=== PATIENT | female | born 1995 | race American Indian/Alaskan Native ===

== ENCOUNTER 2017-01-11 10:20 | Emergency (ER) | payer OTHER ==
[2017-01-11 11:38] LABS: Bacteria,Urine 1+ /HPF (Negative); Bilirubin,Urine NEG (Negative); Blood,Urine NEG (Negative); Ketones,Urine NEG (Negative); Leukocyte Esterase,Urine LG (Negative); Mucus,Urine FEW /HPF; Nitrite,Urine NEG (Negative); Protein,Urine <15 mg/dL mg/dL (Negative)
--- NOTE | 2017-01-11 12:06 | Emergency Department Report ---
ED Female HPI - General Chief complaint: Urogenital-Female Stated complaint: ABD PAIN AND D/C Time Seen by Provider: 01/11/17 12:04 Source: patient, family Mode of arrival: Ambulatory Limitations: No Limitations - History of Present Illness Initial comments: Patient here reports that she has recurrent episode of bacterial vaginosis and she has a fishy odor from her vaginal area from vaginal discharge. Triage note referred to patient stating that she has possible STD exposure but patient denies this. She says she has vaginal discharge that brownish in color. She states she is having pelvic pain at 4 out of 10 that is cramping. Last menstrual period was 01/02/2017. She denies any vaginal bleeding. Denies any back pain. Denies any urinary burning frequency or urgency. She denies any fever or chills. She and had unprotected sex. MD Complaint: vaginal discharge, pelvic pain, possible STD Onset/Timin -: days(s) Location: other (pelvic pain) Radiation: non-radiating Severity scale (0 -10): 4 Quality: cramping Consistency: intermittent Improves with: none Worsens with: urination Are you Now?: No Last Menstrual Period: 01/02/17 EDC: 10/09/17 Associated Symptoms: vaginal discharge, abdominal pain. denies: vaginal bleeding, nausea/vomiting, fever/chills, headaches, loss of appetite, dysuria, hematuria, rash, seizure, shortness of breath, syncope, weakness - Related Data Sexually active: Yes Previous Rx's Medication Instructions Recorded Last Taken Type Cephalexin [Keflex] 500 mg PO BID #14 capsule 09/17/14 Unknown Rx metroNIDAZOLE 0.75% [Metrogel 1 applicatio TP BID #1 tube 11/02/14 Unknown Rx 0.75%] Fluconazole [Diflucan] 150 mg PO QDAY #2 tablet 12/17/14 Unknown Rx Nystatin Cream [Mycostatin Cream] 1 applic TP TID #15 gm 12/17/14 Unknown Rx metroNIDAZOLE [Flagyl] 500 mg PO BID #14 tablet 12/17/14 Unknown Rx Nitrofurantoin [place]/M-Cryst 100 mg PO Q12HR #14 capsule 01/11/17 Unknown Rx [Macrobid CAP] Allergies Allergy/AdvReac Type Severity Reaction Status Date / Time No Known Allergies Allergy Unverified 09/17/14 13:29 ED Review of Systems ROS: Stated complaint: ABD PAIN AND D/C Other details as noted in HPI Comment: All other systems reviewed and negative Constitutional: denies: chills, fever ENT: denies: throat pain Respiratory: no symptoms reported Cardiovascular: denies: chest pain, palpitations, edema, syncope Gastrointestinal: abdominal pain. denies: nausea, vomiting, diarrhea, constipation Genitourinary: discharge. denies: urgency, dysuria, frequency, hematuria, abnormal menses, dyspareunia Musculoskeletal: denies: back pain, arthralgia Skin: denies: rash Neurological: denies: headache, numbness, paresthesias, confusion, abnormal gait , vertigo ED Past Medical Hx - Past Medical History Previous Medical History?: Yes Additional medical history: miscarriage 2013, bacterial vaginosis - Surgical History Past Surgical History?: No - Family History Family history: no significant - Social History Smoking Status: Never Smoker Substance Use Type: Alcohol - Medications Home Medications: Home Medications Medication Instructions Recorded Confirmed Last Taken Type Cephalexin [Keflex] 500 mg PO BID #14 capsule 09/17/14 Unknown Rx metroNIDAZOLE 0.75% [Metrogel 1 applicatio TP BID #1 tube 11/02/14 Unknown Rx 0.75%] Fluconazole [Diflucan] 150 mg PO QDAY #2 tablet 12/17/14 Unknown Rx Nystatin Cream [Mycostatin Cream] 1 applic TP TID #15 gm 12/17/14 Unknown Rx metroNIDAZOLE [Flagyl] 500 mg PO BID #14 tablet 12/17/14 Unknown Rx Nitrofurantoin [place]/M-Cryst 100 mg PO Q12HR #14 capsule 01/11/17 Unknown Rx [Macrobid CAP] ED Physical Exam - General Limitations: No Limitations General appearance: alert, in no apparent distress - Head Head exam: Present: atraumatic, normocephalic, normal inspection - Eye Eye exam: Present: normal appearance, PERRL, EOMI Pupils: Present: normal accommodation - ENT ENT exam: Present: normal exam, normal orophraynx, mucous membranes moist - Neck Neck exam: Present: normal inspection, full ROM. Absent: tenderness, lymphadenopathy - Respiratory Respiratory exam: Present: normal lung sounds bilaterally. Absent: respiratory distress, chest wall tenderness - Cardiovascular Cardiovascular Exam: Present: regular rate, normal rhythm, normal heart sounds - GI/Abdominal GI/Abdominal exam: Present: soft, normal bowel sounds. Absent: distended, tenderness, guarding, rebound, rigid - External exam: Present: normal external exam. Absent: erythema, swelling, lesions, lacerations, ecchymosis, bleeding Speculum exam: Present: vaginal discharge, cervical discharge. Absent: erythema , vaginal bleeding, foreign body, tissue, laceration Bi-manual exam: Absent: cervical motion tendernes, adnexal tenderness, adnexal mass, uterine enlargement, uterine tenderness - Extremities Exam Extremities exam: Present: normal inspection, full ROM, normal capillary refill. Absent: tenderness, pedal edema, joint swelling, calf tenderness - Back Exam Back exam: Present: normal inspection, full ROM. Absent: tenderness, CVA tenderness (R), CVA tenderness (L), muscle spasm, paraspinal tenderness, vertebral tenderness, rash noted - Neurological Exam Neurological exam: Present: alert, oriented X3, normal gait - Psychiatric Psychiatric exam: Present: normal affect, normal mood - Skin Skin exam: Present: warm, dry, intact, normal color. Absent: rash ED Course Vital Signs 01/11/17 10:27 Temperature 98.2 F Pulse Rate 71 Respiratory 20 Rate Blood Pressure 114/62 O2 Sat by Pulse 100 Oximetry - Reevaluation(s) Reevaluation #1: 01/11/17 14:20 Patient stable throughout ED course. abdominal exam remains normal. Patient was treated for Trichomonas as her wet prep showed positive trichomonas, negative clue cells and negative yeast. Gonorrhea and chlamydia test is pending. She also noted to be treated for gonorrhea and chlamydia. ED Medical Decision Making - Lab Data Lab Results 01/11/17 Range/Units 11:03 Urine Color Yellow (Yellow) Urine Turbidity Clear (Clear) Urine pH 6.0 (5.0-7.0) Ur Specific [place] 1.021 (1.003-1.030) Urine Protein <15 mg/dl (Negative) mg/dL Urine Glucose (UA) Neg (Negative) mg/dL Urine Ketones Neg (Negative) mg/dL Urine Blood Neg (Negative) Urine Nitrite Neg (Negative) Urine Bilirubin Neg (Negative) Urine Urobilinogen 2.0 (<2.0) mg/dL Ur Leukocyte Esterase Lg (Negative) Urine WBC (Auto) 17.0 H (0.0-6.0) /HPF Urine RBC (Auto) 8.0 (0.0-6.0) /HPF U Epithel Cells (Auto) 4.0 (0-13.0) /HPF Urine Bacteria (Auto) 1+ (Negative) /HPF Urine Mucus Few /HPF Urine HCG, Qual Negative (Negative) Wet prep: Moderate Trichomonas, -2 cell and negative yeast. GC/ chlamydia pending Urine culture pending - Medical Decision Making ED course: PT With diagnosis of Trichomonas positive on wet prep with negative cells and negative yeast. Gonorrhea and chlamydia is pending. Patient opted to be treated for STD to include gonorrhea and chlamydia and of course trichomonas. He also has a UTI. She was treated with Rocephin 1 g to cover gonorrhea and UTI, Flagyl 2 g by mouth and Zithromax 1 g by mouth. She had no adverse reaction to medication. She is also diagnosed with UTI and pelvic pain. I discussed the patient that she needs to follow-up with her primary care physician and she is requesting to be referred to a primary care physician. I also informed her she needs to call or return to medical records to get her results of her gonorrhea and chlamydia but she was treated empirically. States and encouraged. Patient was understanding of discharge diagnosis and treatment plan. Discharged home with prescription for Macrobid to cover UTI. Critical care attestation.: If time is entered above; I have spent that time in minutes in the direct care of this critically ill patient, excluding procedure time. ED Disposition Clinical Impression: Trichomonas infection, STD (female), Cystitis without hematuria, Vaginal discharge, Pelvic pain Disposition: DISCHARGED TO HOME OR SELFCARE Is pt being admited?: No Does the pt Need Aspirin: No Condition: Stable Instructions: Urinary Tract Infection in Women (ED), Safe Sex (ED), Trichomoniasis (ED), Sexually Transmitted Diseases (ED), Abdominal Pain (ED) Additional Instructions: To practice safe sex Refrain from having sexual activity for the next 2 weeks until recheck by your primary care physician. Please call Dr. Mendoza's office to schedule an appointment for wellness visit and Pap smear Please your partner know that you were Trichomonas and treated for Trichomonas, Chlamydia and gonorrhea. Take antibiotic for urinary tract infection as discussed. Prescriptions: Nitrofurantoin [place]/M-Cryst [Macrobid CAP] 100 mg PO Q12HR #14 capsule Referrals: PRIMARY CARE, [Primary Care Provider] - 3-5 Days Forms: Accompanied Note, Work/School Release Form(ED)
[2017-01-11] MEDS ORDERED: ZITHROMAX PO ONE (13:38)
[2017-01-11] MEDS ORDERED: FLAGYL PO ONE (13:38)
[2017-01-11] MEDS ORDERED: XYLOCAINE 1% MPF 5 mL INFILTRATI ONE (13:38)
[2017-01-11] MEDS ORDERED: ROCEPHIN IM STA (13:38)
[2017-01-11 15:00] VITALS: BP 116/66
== END 2017-01-11 14:59 | disposition home or self-care (01) ==
LOC: ED 10:20
DX: N30.00 Acute cystitis without hematuria (principal); A59.9 Trichomoniasis, unspecified; N89.8 Other specified noninflammatory disorders of vagina; R10.2 Pelvic and perineal pain
CPT/HCPCS: 81001; 81025; 87210; 87591; 96372; 99284; J0696

== ENCOUNTER 2017-02-20 17:40 | Emergency (ER) | payer OTHER ==
[2017-02-20 17:55] VITALS: BP 127/72
[2017-02-20 18:30] LABS: Basophils % (Auto) 0.4 % (0.0-1.8); Eosinophils % (Auto) 0.8 % (0.0-4.3); Hematocrit 35.1 % (30.3-42.9); Hemoglobin 11.1 gm/dl (10.1-14.3); Mean Corpuscular HGB Conc 32 % (30-34); Mean Corpuscular Volume 80 fl (79-97); Platelet Count 343 K/mm3 (140-440); Red Cell Distribution Width 16.7 % (13.2-15.2); White Blood Count 7.1 K/mm3 (4.5-11.0)
[2017-02-20 18:39] LABS: Mean Corpuscular Hemoglobin 25 pg (28-32)
[2017-02-20 18:41] LABS: Bilirubin,Urine NEG (Negative); Blood,Urine NEG (Negative); Ketones,Urine NEG (Negative); Leukocyte Esterase,Urine LG (Negative); Mucus,Urine FEW /HPF; Nitrite,Urine NEG (Negative); Protein,Urine <15 mg/dL mg/dL (Negative); Urobilinogen,Urine < 2.0 mg/dL (<2.0)
[2017-02-20 18:44] LABS: Alanine Aminotransferase 9 units/L (7-56); Albumin 4.3 g/dL (3.9-5); Albumin/Globulin Ratio 1.3 %; Alkaline Phosphatase 51 units/L (35-129); Anion Gap 18 mmol/L; Blood Urea Nitrogen 15 mg/dL (7-17); Calcium 9.3 mg/dL (8.4-10.2); Carbon Dioxide 25 mmol/L (22-30); Chloride 100.8 mmol/L (98-107); Glucose 99 mg/dL (65-100); Lipase 27 units/L (13-60); Potassium 3.6 mmol/L (3.6-5.0); Sodium 140 mmol/L (137-145); Total Protein 7.7 g/dL (6.3-8.2)
--- NOTE | 2017-02-23 10:05 | ED Elopement Review ---
ED Pt Elopement review - Results review Lab results: Laboratory Tests 02/20/17 02/20/17 02/20/17 18:08 18:08 18:10 WBC 7.1 RBC 4.40 Hgb 11.1 Hct 35.1 MCV 80 MCH 25 L MCHC 32 RDW 16.7 H Plt Count 343 Lymph % (Auto) 24.8 [place] % (Auto) 8.4 H Eos % (Auto) 0.8 Baso % (Auto) 0.4 Lymph # 1.8 [place] # 0.6 Eos # 0.1 Baso # 0.0 Seg Neutrophils % 65.6 Seg Neutrophils # 4.7 Sodium 140 Potassium 3.6 Chloride 100.8 Carbon Dioxide 25 Anion Gap 18 BUN 15 Creatinine 0.6 L Estimated GFR > 60 BUN/Creatinine Ratio 25.00 Glucose 99 Calcium 9.3 Total Bilirubin 0.20 AST 14 ALT 9 Alkaline Phosphatase 51 Total Protein 7.7 Albumin 4.3 Albumin/Globulin Ratio 1.3 Lipase 27 Urine Color Yellow Urine Turbidity Slightly-cloudy Urine pH 6.0 Ur Specific [place] 1.021 Urine Protein <15 mg/dl Urine Glucose (UA) Neg Urine Ketones Neg Urine Blood Neg Urine Nitrite Neg Urine Bilirubin Neg Urine Urobilinogen < 2.0 Ur Leukocyte Esterase Lg Urine WBC (Auto) 5.0 Urine RBC (Auto) 1.0 U Epithel Cells (Auto) 18.0 H Urine Mucus Few Urine HCG, Qual Negative - Call Back decision Pt Call Back Decision: No action required
== END 2017-02-20 20:45 | disposition left against medical advice (07) ==
LOC: ED 17:40
DX: R10.2 Pelvic and perineal pain (principal); N89.8 Other specified noninflammatory disorders of vagina; Z53.21 Procedure and treatment not carried out due to patient leaving prior to being seen by health care provider
CPT/HCPCS: 36415; 80053; 81001; 81025; 83690; 85025

== ENCOUNTER 2017-02-26 14:36 | Emergency (ER) | payer OTHER | END 2017-02-26 14:37 | disposition left against medical advice (07) | LOC: ED 14:36 | DX: Z53.21 Procedure and treatment not carried out due to patient leaving prior to being seen by health care provider (principal) ==

== ENCOUNTER 2017-02-27 10:11 | Emergency (ER) | payer OTHER ==
[2017-02-27 10:21] VITALS: BP 120/74
[2017-02-27 11:28] LABS: Anion Gap 14 mmol/L; Blood Urea Nitrogen 11 mg/dL (7-17); Calcium 8.8 mg/dL (8.4-10.2); Carbon Dioxide 25 mmol/L (22-30); Chloride 101.1 mmol/L (98-107); Glucose 85 mg/dL (65-100); Potassium 4.4 mmol/L (3.6-5.0); Sodium 136 mmol/L (137-145)
[2017-02-27 11:29] LABS: Basophils % (Auto) 0.3 % (0.0-1.8); Eosinophils % (Auto) 1.3 % (0.0-4.3); Hematocrit 34.6 % (30.3-42.9); Hemoglobin 11.1 gm/dl (10.1-14.3); Mean Corpuscular HGB Conc 32 % (30-34); Mean Corpuscular Volume 80 fl (79-97); Platelet Count 343 K/mm3 (140-440); Red Blood Count 4.31 M/mm3 (3.65-5.03); Red Cell Distribution Width 16.7 % (13.2-15.2); White Blood Count 7.3 K/mm3 (4.5-11.0)
[2017-02-27 11:30] LABS: Mean Corpuscular Hemoglobin 26 pg (28-32)
--- NOTE | 2017-02-27 12:16 | Ultrasound Report ---
ULTRASOUND PELVIC COMPLETE ULTRASOUND TRANSVAGINAL HISTORY: Pelvic pain. TECHNIQUE: Transabdominal and transvaginal ultrasound with color and spectral doppler interrogation. Longitudinal and transverse real-time images of the pelvis demonstrate that the uterus and ovaries are present and in a normal location. They are of normal echogenicity, contour and size. No pathologic changes in the adjacent tissues are noted. The endometrium measures 12 mm. The spectral waveforms demonstrate arterial flow to both ovaries. IMPRESSION: Unremarkable transabdominal and transvaginal pelvic ultrasounds.
[2017-02-27 12:42] LABS: Bilirubin,Urine NEG (Negative); Blood,Urine NEG (Negative); Ketones,Urine NEG (Negative); Leukocyte Esterase,Urine MOD (Negative); Mucus,Urine FEW /HPF; Nitrite,Urine NEG (Negative); Protein,Urine <15 mg/dL mg/dL (Negative); Urobilinogen,Urine < 2.0 mg/dL (<2.0)
[2017-02-27] MEDS: XYLOCAINE 1% MPF 5 mL INFILTRATI ONE (13:35)
[2017-02-27] MEDS: ZITHROMAX PO ONE (13:35)
[2017-02-27] MEDS: ROCEPHIN IM ONE (13:35)
--- NOTE | 2017-02-27 18:49 | Emergency Department Report ---
Entered by KEYA FINE, acting as scribe for DEBBIE DOUGLAS NP. ED Female HPI - General Chief complaint: Urogenital-Female Stated complaint: ABD PAIN /DISCHARGE/PELVIC PAIN Time Seen by Provider: 02/27/17 10:41 Source: patient Mode of arrival: Ambulatory Limitations: No Limitations - History of Present Illness Initial comments: This is a 22 y/o female, nontoxic, well nourished in appearance, no acute signs of distress with PMHx of bacterial vaginosis, presents with vaginal discharge that began yesterday. Associated symptoms include pelvic pain and odor (fishy smell) but she denies abdominal pain, back pain, nausea/vomiting, headache, stiff neck, dysuria, chest pain, SOB, back pain, fever and chills. Pain is described as 6/20 on a severity scale. Patient states that she was diagnosed with recurring bacterial vaginosis in December. Seen here yesterday but eloped.Pt also c/o of possible exposure to STD. No alleviating or aggravating factors. NKDA. Complaint: vaginal discharge Onset/Timin -: days(s) Radiation: non-radiating Severity: moderate Severity scale (0 -10): 6 Quality: aching Consistency: intermittent Improves with: none Worsens with: none Are you Now?: No Associated Symptoms: vaginal discharge, other (pelvic pain with vaginal odor, no chest pain, no back pain). denies: vaginal bleeding, abdominal pain, nausea/ vomiting, fever/chills, headaches, loss of appetite, dysuria, hematuria, rash, seizure, shortness of breath, syncope, weakness - Related Data Sexually active: Yes Previous Rx's Medication Instructions Recorded Last Taken Type Cephalexin [Keflex] 500 mg PO BID #14 capsule 09/17/14 Unknown Rx metroNIDAZOLE 0.75% [Metrogel 1 applicatio TP BID #1 tube 11/02/14 Unknown Rx 0.75%] Fluconazole [Diflucan] 150 mg PO QDAY #2 tablet 12/17/14 Unknown Rx Nystatin Cream [Mycostatin Cream] 1 applic TP TID #15 gm 12/17/14 Unknown Rx metroNIDAZOLE [Flagyl] 500 mg PO BID #14 tablet 12/17/14 Unknown Rx Nitrofurantoin [place]/M-Cryst 100 mg PO Q12HR #14 capsule 01/11/17 Unknown Rx [Macrobid CAP] metroNIDAZOLE [Flagyl] 500 mg PO Q12HR 7 Days 02/27/17 Unknown Rx Allergies Allergy/AdvReac Type Severity Reaction Status Date / Time No Known Allergies Allergy Unverified 09/17/14 13:29 ED Review of Systems Comment: All other systems reviewed and negative Constitutional: denies: chills, fever Eyes: denies: eye pain, eye discharge, vision change ENT: denies: ear pain, throat pain Respiratory: denies: shortness of breath Cardiovascular: denies: chest pain Endocrine: no symptoms reported Gastrointestinal: denies: abdominal pain Genitourinary: other (vaginal discharge, pelvic pain, odor). denies: dysuria Musculoskeletal: denies: back pain Skin: denies: rash, lesions Neurological: as per HPI Psychiatric: denies: anxiety, depression Hematological/Lymphatic: denies: easy bleeding, easy bruising ED Past Medical Hx - Past Medical History Previous Medical History?: Yes Additional medical history: miscarriage 2013, bacterial vaginosis - Surgical History Past Surgical History?: No - Social History Smoking Status: Current Some Day Smoker Substance Use Type: Alcohol, Marijuana, Non Opiate Pain - Medications Home Medications: Home Medications Medication Instructions Recorded Confirmed Last Taken Type Cephalexin [Keflex] 500 mg PO BID #14 capsule 09/17/14 Unknown Rx metroNIDAZOLE 0.75% [Metrogel 1 applicatio TP BID #1 tube 11/02/14 Unknown Rx 0.75%] Fluconazole [Diflucan] 150 mg PO QDAY #2 tablet 12/17/14 Unknown Rx Nystatin Cream [Mycostatin Cream] 1 applic TP TID #15 gm 12/17/14 Unknown Rx metroNIDAZOLE [Flagyl] 500 mg PO BID #14 tablet 12/17/14 Unknown Rx Nitrofurantoin [place]/M-Cryst 100 mg PO Q12HR #14 capsule 01/11/17 Unknown Rx [Macrobid CAP] metroNIDAZOLE [Flagyl] 500 mg PO Q12HR 7 Days 02/27/17 Unknown Rx ED Physical Exam - General Limitations: No Limitations General appearance: alert, in no apparent distress - Head Head exam: Present: atraumatic, normocephalic, normal inspection - Eye Eye exam: Present: normal appearance, PERRL, EOMI. Absent: scleral icterus, conjunctival injection, nystagmus, periorbital swelling, periorbital tenderness - ENT ENT exam: Present: normal exam, normal orophraynx, mucous membranes moist, TM's normal bilaterally, normal external ear exam - Neck Neck exam: Present: normal inspection, full ROM. Absent: tenderness, meningismus, lymphadenopathy, thyromegaly - Respiratory Respiratory exam: Present: normal lung sounds bilaterally. Absent: respiratory distress, wheezes, rales, rhonchi, stridor, chest wall tenderness, accessory muscle use, decreased breath sounds, prolonged expiratory - Cardiovascular Cardiovascular Exam: Present: regular rate, normal rhythm, normal heart sounds. Absent: bradycardia, tachycardia, irregular rhythm, systolic murmur, diastolic murmur, rubs, gallop - GI/Abdominal GI/Abdominal exam: Present: soft, normal bowel sounds. Absent: distended, tenderness, guarding, rebound, rigid, diminished bowel sounds - Expanded GI/Abdominal Exam Expanded GI/Abdominal exam: Absent: psoas sign, obturator sign, heel tap sign, Hoang's sign, Rovsing's sign, tenderness at [place]'s Point - External exam: Present: normal external exam. Absent: erythema, swelling, lesions, lacerations, ecchymosis, bleeding Speculum exam: Present: normal speculum exam. Absent: erythema, vaginal discharge, cervical discharge, vaginal bleeding, foreign body, tissue, laceration Bi-manual exam: Present: normal bi-manual exam. Absent: cervical motion tendernes, adnexal tenderness, adnexal mass, uterine enlargement, uterine tenderness - Extremities Exam Extremities exam: Present: normal inspection, full ROM, normal capillary refill. Absent: tenderness, pedal edema, joint swelling, calf tenderness - Back Exam Back exam: Present: normal inspection, full ROM. Absent: tenderness, CVA tenderness (R), CVA tenderness (L), muscle spasm, paraspinal tenderness, vertebral tenderness, rash noted - Neurological Exam Neurological exam: Present: alert, oriented X3, CN II-XII intact, normal gait - Psychiatric Psychiatric exam: Present: normal affect, normal mood - Skin Skin exam: Present: warm, dry, intact, normal color. Absent: rash - Other Other exam information: During external exam/speculum exam senior cyber intelligence analyst present Keya Hernandez ED Course Vital Signs 02/27/17 10:16 Temperature 98.3 F Pulse Rate 84 Respiratory 18 Rate Blood Pressure 120/74 O2 Sat by Pulse 99 Oximetry - Reevaluation(s) Reevaluation #1: 02/27/17 11:25 Patient stated does wants empirical treatment for BV bc she has hx of negative BV results with positive symptoms and gets treatment for BV. ED Medical Decision Making - Lab Data Result diagrams: 02/27/17 10:57 02/27/17 10:57 - Medical Decision Making Ed course: this is a 22-year-old that presents with possible exposure to STD and c/o of BV 1- after my physical exam, about ultrasound/transvaginal ultrasound, UA, CBC, BMP and test has been obtained in ED. 2- Patient stated does wants empirical treatment for BV bc she has hx of negative BV results with positive symptoms and gets treatment for BV. 3- patient was instructed to follow-up in 3-5 days for results of gonorrhea and chlamydia results 4- patient was instructed to follow-up with her primary care doctor in 3-5 days or if symptoms worsen or continue report back to the emergency room 5- at time time of discharge, the patient does not seem toxic or ill in appearance. No acute signs of distress noted. Patient agrees to discharge treatment plan of care. No further questions noted by the patient. ED Disposition Clinical Impression: Possible exposure to STD Disposition: DC-01 TO HOME OR SELFCARE Is pt being admited?: No Does the pt Need Aspirin: No Condition: Stable Instructions: Safe Sex (ED), Metronidazole (By mouth) Additional Instructions: Take Flagyl as prescribed. Alcohol should not be consumed during therapy and for one day after completion of therapy (for oral or vaginal therapy) [facility] in [facility]5 days at medical records to obtain the results of gonorrhea/chlamydia Prescriptions: metroNIDAZOLE [Flagyl] 500 mg PO Q12HR 7 Days Referrals: PRIMARY CAREMD [Primary Care Provider] - 3-5 Days [facility] [Outside] - 3-5 Days [facility] [Outside] - 3-5 Days IVIS OTT MD [Staff Physician] - 3-5 Days Forms: Work/School Release Form(ED) This documentation as recorded by the BABATUNDE arthur ELIZABETH,accurately reflects the service I personally performed and the decisions made by me,DEBBIE DOUGLAS, VIDEO PRODUCTION SPECIALIST.
== END 2017-02-27 13:45 | disposition home or self-care (01) ==
LOC: ED 10:11
DX: N89.8 Other specified noninflammatory disorders of vagina (principal); R10.2 Pelvic and perineal pain; F17.200 Nicotine dependence, unspecified, uncomplicated; F12.10 Cannabis abuse, uncomplicated
CPT/HCPCS: 36415; 76830; 76856; 80048; 81001; 84703; 85025; 87210; 87591; 96372; 99284; J0696